=== PATIENT | male | born 1955 | race Asian ===

== ENCOUNTER 2022-04-09 07:08 | Day surgery (SDC) | payer MEDICARE, OTHER ==
[~2022-04-09] VITALS: Ht 157.5 cm; Wt 88.2 kg
[~2022-04-09 07:08] MED LIST: AMBIEN5 MG PO; BENICAR HCT 201 EACH PO; CRUTCH1 EACH; IBUPROFEN400 MG PO; LIPITOR10 MG; METFORMIN HCL500 MG PO; NORCO 10-325 T1 EACH PO; NORCO 5-325 TA1 EACH PO; NORCO 7.5-3251 EACH PO; ULTRAM50 MG PO; ZOLOFT50 MG
--- NOTE | 2022-04-09 08:50 | NUR ---
04/09/22 0850 Monik Romano 0826 PT ARRIVED IN PACU SLEEPY WITH NO C/O'S. ABD FIRM. ENCOURAGED PT TO PASS GAS. 0835 PT PASSING GAS. ABD SOFT. 0845 SITTING AT SIDE OF BED GETTING DRESSED. DC INSTRUCTIONS GIVEN. ALL QUESTIONS ANSWERED.
--- NOTE | 2022-04-10 08:02 | OR ---
[facility] [address], [place] [address] Signed DATE OF OPERATION: 04/09/2022 SURGEON: Luis Pollock MD PREOPERATIVE DIAGNOSES: 1. Personal history of colonic polyps, age 50 (2005). 2. Internal hemorrhoids. 3. Colonic lipomas. 4. Hyperplastic polyps. 5. Father with colonic polyps in his 60s. POSTOPERATIVE DIAGNOSIS: Minimal internal hemorrhoids. PROCEDURE: Colonoscopy without biopsy. ESTIMATED BLOOD LOSS: None. INDICATIONS: Slime is a 67-year-old gentleman, who returns for followup colonoscopy. He came in 2005 at the age of 50. He had a tubulovillous adenomatous polyp removed at 25 cm. He is known to have internal hemorrhoids. He always does well with Versed and fentanyl. He returned in 2009 at the age of 55. He had hyperplastic polyps removed at that time. Again, internal hemorrhoids. We also noticed some lipomas in the colon, although we did not see those today. He returned in 2014, had internal hemorrhoids, but no polyps. He returns now for followup colonoscopy. It has been a little delayed because of the COVID pandemic. We know his father had colonic polyps in his 60s. He has no lower GI complaints. In the office, I gave him a pamphlet on colonoscopy. He understands the nature of that test. There is risk including, but not limited to gas bloating, crampy abdominal pain, bleeding, perforation requiring surgery, and missed diagnosis. We also reviewed the need for IV conscious sedation. He had expressed understanding and wished to proceed. PROCEDURE IN DETAIL: Slime was taken into our endoscopy suite and placed in the left lateral decubitus position. He was given a total of 4 mg of Versed and 100 mcg of fentanyl to cover the case. A digital rectal exam was performed and this was unremarkable. He does have moderately indurated and swollen prostate gland consistent with his age. The adult Electronically Signed By: LUIS POLLOCK MD 04/10/22 0802 PATIENT NAME: SLIME CASTANEDA OPERATIVE REPORT DATE OF : 59 REPORT #: [id number] PHYSICIAN: LUIS POLLOCK MD PCP: DANDY PAGAN MD REPORT IS CONFIDENTIAL AND NOT TO BE RELEASED WITHOUT AUTHORIZATION [facility] [address], [place] [address] Signed colonoscope had been introduced and advanced under direct visualization of camera. His prep was quite excellent. We could easily see the appendiceal orifice and the ileocecal valve. The scope was then slowly withdrawn. There were no polyps on this occasion. No diverticulosis. We did not specifically see any lipomas on this occasion. Once in the rectum, the scope was retroflexed. He does have the minimal internal hemorrhoids. After this, the gas was suctioned out. The colonoscope removed. Slime tolerated the procedure quite well. RECOMMENDATIONS: Slime can return in 5 years for repeat colonoscopy given his personal and family history. Luis Pollock MD ALB/MODL /[id number] cc: MD Dandy Malik MD Copies: LUIS POLLOCK MD, MALCOLM MD ~ Electronically Signed By: LUIS POLLOCK MD 04/10/22 0802 PATIENT NAME: SLIME CASTANEDA OPERATIVE REPORT DATE OF : 59 REPORT #: [id number] PHYSICIAN: LUIS POLLOCK MD PCP: DANDY PAGAN MD REPORT IS CONFIDENTIAL AND NOT TO BE RELEASED WITHOUT AUTHORIZATION
== END 2022-04-09 08:55 | disposition home or self-care (01) ==
LOC: DS 07:08 → OPS 07:08 → DS 08:15 → OPS 08:55
PROVIDERS: ATTEND Colon & Rectal Surgery
PROC: 0DJD8ZZ Inspection of Lower Intestinal Tract, Via Natural or Artificial Opening Endoscopic (ICD-10-PCS; principal; 2022-04-09 08:15)
DX: Z12.11 Encounter for screening for malignant neoplasm of colon (principal); K64.0 First degree hemorrhoids; E11.9 Type 2 diabetes mellitus without complications; G47.33 Obstructive sleep apnea (adult) (pediatric); I10 Essential (primary) hypertension; E66.9 Obesity, unspecified; Z87.19 Personal history of other diseases of the digestive system; Z83.71 Family history of colonic polyps; Z86.718 Personal history of other venous thrombosis and embolism; Z88.5 Allergy status to narcotic agent; Z68.35 Body mass index [BMI] 35.0-35.9, adult
CPT/HCPCS: 99153; G0500; J0690; J2250; J3010; J7121

== ENCOUNTER 2023-09-08 05:50 | Day surgery (SDC) | payer OTHER, MEDICARE ==
[2023-09-03 10:41] VITALS: BP 122/81
[~2023-09-08] VITALS: Ht 157.5 cm; Wt 89.0 kg
[~2023-09-08 05:50] MED LIST changes: -BENICAR HCT 201 EACH PO; +BENICAR20 MG PO; -LIPITOR10 MG; +LIPITOR10 MG PO; -ZOLOFT50 MG; +ZOLOFT50 MG PO; +ZOLPIDEM TARTRAT5 MG PO
[2023-09-08 06:05] VITALS: BP 117/79
--- NOTE | 2023-09-08 13:32 | NUR ---
09/08/23 1332 Doris De La Cruz [phone] PT HEART RHYTHM SINUS TACH. 1238 PT ARRIVED TO PACU MOANING AND STARTING TO MOVE AROUND IN BED. 1240 PT GRABBING AT BLACKETS AND NOD "YES" WHEN ASKED ABOUT PAIN. 1255 PT REPORTS PAIN IS 10/10, RN CONTINUES TO REORIENT PT TO PACU. PT REPROTS "PEE," THE NEED TO VOID. PT EDUCATION GIVEN. O2 REMOVED. 1305 PT MOVED UP IN BED, O2 SAT DECREASED TO 88-89%, DEEP BREATHING ENCOURGAGED. PT MORE AWAKE AND RESTING IN BED. NO MOANING OR GRIMACING NOTED. 1306 2L NC PLACED, O2 INCREASED TO MID 90S. 1314 PAIN MEDICATION GIVEN, PT REPORTS PAIN IS THE NEED TO VOID. EDUCATION GIVEN ON THE NEED TO VOID, JACKSON, AND PAIN MEDICATION AND DEEP BREATHING. 1320 PT RESTING AND ASLEEP OFF AND ON. PLAN OF CARE DISCUSSED.
[2023-09-08 14:00] VITALS: BP 116/72
--- NOTE | 2023-09-08 14:24 | NUR ---
PT ARRIVES TO MED-SURG @1400 VIA BED. QUIET ALERT. REPORT RECEIVED. PT RESTING NOW EYES CLOSED, JACKSON DRAINING PALE PINK. SATS ARE 96% PT REMAINS ON 2LPM APPEARS SLEEPY AT THIS TIME WILL LET HIM REST.
--- NOTE | 2023-09-08 14:39 | NUR ---
PT IN GOOD SPIRITS. TALKED QUIETLY BUT MADE JOKES. DENIED NEEDS. DECLINED GUIDEPOST. CONSENTED TO PRAYER. PRAYED FOR HEALING AND ONGOING BLESSING.
--- NOTE | 2023-09-08 15:22 | NUR ---
PT RESTING EYES CLOSED AWAKENS TO VOICE. AGREES HE IS COMFORTABLE, H20 AND CALL LIGHT AT BEDSIDE. JACKSON DRAINING LIGHT PINK.
[2023-09-08 15:52] VITALS: BP 110/67
--- NOTE | 2023-09-08 16:35 | NUR ---
PT REPORTS NEEDING TO MOVE HIS BOWELS. ASSISTED TO BED CARRILLO AFTER MUCH CONVINCING OF NEED TO REMAIN SUPINE AND NOT STRAIN. HIS IS AT BEDSIDE.
--- NOTE | 2023-09-08 17:31 | NUR ---
PT UNABLE TO MOVE HIS BOWELS. CONTINUES RESTING IN BED PRESENT IN THE ROOM. PT DRINKING DIET PEPSI STATES HE IS NOT HUNGRY BUT MIGHT EAT A BITE OR TWO WHEN THE MEAL IS SERVED. DENIES NEEDS AT THIS TIME
[2023-09-08] MEDS ORDERED: FINASTERIDE5 MG PO (17:35)
--- NOTE | 2023-09-08 17:55 | NUR ---
PT AGREES HE HAS SOME DISCOMFORT TAKES NORCO WITH EVENING MEAL. CBI STILL RUNNING GENTLY LIGHT PINK. REMAINS IN THE ROOM.
--- NOTE | 2023-09-08 18:18 | NUR ---
MED REC COMPLETE
--- NOTE | 2023-09-08 19:46 | NUR ---
REPORT RECEIVED FROM DAY SHIFT RN. PT LYING IN BED ALERT AND ORIENTED. CBI INFUSING AT A SLOW DRIP. URINE IN TUBING LIGHT PINK. NO CLOTS NOTED. PT DENIES NEEDS AT THIS TIME. WHITE BOARD UPDATED. CALL LIGHT IN REACH. AT BEDSIDE.
[2023-09-08 21:11] VITALS: BP 112/63
--- NOTE | 2023-09-08 21:44 | NUR ---
EVENING ASSESSMENT COMPLETE. SCHEDULED MEDS ADMIN PER EMAR. PT DENIES PAIN AT REST. DENIES NAUSEA. CBI CLAMPED AT THIS TIME. URINE IN TUBING LIGHT PINK. NO CLOTS NOTED. JACKSON CARE COMPLETE. SCANT AMOUNT OLD BLOODY DRAINAGE NOTED. 2PA TO REPOSITION IN BED. CPOX AND SCD'S IN PLACED. PT DENIES QUESTIONS OR CONCERNS. CALL LIGHT IN REACH.
--- NOTE | 2023-09-09 00:28 | NUR ---
PT RESTING IN BED WITH EYES CLOSE. HOME CPAP IN PLACE. SpO2 94%. HR LOW 100'S. RESPIRATIOS EVEN. URINE REMAINS LIGHT PINK. CBI REMAINS CLAMPED.
[2023-09-09 02:09] VITALS: BP 109/67
--- NOTE | 2023-09-09 02:57 | NUR ---
PT RESTING WITH EYES CLOSED. AWAKENS EASILY. VS AND I&O OBTAINED. PT REPORTS JACKSON PAIN 07/03. PRN FOR PAIN ADMIN PER EMAR. URINE REMAINS LIGHT PINK. NO CLOTS NOTED. CBI REMAINS CLAMPED. RESTING ON COUCH. NO FURTHER NEEDS AT THIS TIME.
--- NOTE | 2023-09-09 04:19 | NUR ---
RN WENT INTO PT ROOM TO CHECK ON C.POX ALARM. PT STATED THAT THEY ARE GOING TO TAKE THEIR OWN MELETONIN THAT THEY HAVE BROUGHT WITH THEM. RN EDUCATED PT AND PT'S ON NOT TAKING MEDICATION BROUGHT FROM HOME. PT STATED THAT THEY ARE GOING TO DO IT ANYWAY IF THEY FEEL THEY NEED IT. CHARGE NURSE AND PRIMARY RN INFORMED. WILL CONTINUE TO MONITOR.
[2023-09-09 05:52] VITALS: BP 117/70
--- NOTE | 2023-09-09 05:59 | NUR ---
PT RESTING WITH EYES CLOSED. AWAKENS EASILY. VS AND I&O OBTAINED. PT REPORTS PAIN IS TOLERABLE AT THIS TIME. JACKSON DRAINING LIGHT RED URINE. NO CLOTS NOTED. PT DENIES FURTHER NEEDS. CALL LIGHT IN REACH.
--- NOTE | 2023-09-09 07:05 | NUR ---
REPORT RECEIVED FROM ALVARO ALEXIS. PT RESTING IN BED WITH EYES CLOSED, RESPIRATIONS EVEN AND UNLABORED. HEAD OF BED AT 10 DEGREES. JACKSON CATHETER SHOWS PINK URINE, TO GRAVITY. PT ALLOWED TO REST. BED RAILS UP. CALL LIGHT WITHIN REACH.
--- NOTE | 2023-09-09 08:16 | NUR ---
MORNING ASSESSMENT AND MEDICATION DUE. PT RESTING IN BED, VISITING WITH . PT ALERT AND OREITNED TO ALL. PT REPORTS 5/10 PAIN IN PENIS AND REPORTS HE FEELS A CONSTANT NEED TO VOID. SEE MAR FOR MEDICATION GIVEN. ABDOMDEN REMAINS SOFT AND NON TENDER. FLANKS ARE NON TENDER. HEART TONES REGULAR. LUNG SOUNDS CLEAR. JACKSON CATHETER DRAINING PINK URINE, OCCATIONAL VERY SMALL CLOT SEEN. EXTENSIVE EDUCATION DONE WITH PT REGARDING JACKSON CATHETER CARE AND MONITORING OUTPUT. PT AND FAMILY DEMONSTRATE UNDERSTANDING, CATHETER CARE DONE AT THIS TIME. SCAND RED DRAINAGE SEEN FROM MEATUS. PT EATING BREAKFAST. MEDICATIONS GIVEN. NO ADDITIONAL REQUESTS OR COMPLAINTS. CALL LIGHT WITHIN REACH. BED RAILS UP.
[2023-09-09] MEDS ORDERED: CIPRO500 MG PO (09:18)
[2023-09-09] MEDS ORDERED: HYDROCODONE BIT10 MG PO (09:24)
[2023-09-09 09:33] VITALS: BP 99/56
--- NOTE | 2023-09-09 09:54 | NUR ---
DR MENCHACA CALLED AND UPDATED REGARDING PTS STATUS. STATES OK TO PROCEED WITH DISCHARGE AT THIS TIME.
--- NOTE | 2023-09-09 10:10 | NUR ---
PT READY FOR DISCHARGE. VITAL SIGNS STABLE. IV DC'D PER PROTOCOL, GAUZE AND COBAN APPLIED. PT DRESSES SELF, EDUCATION REGARDING CATHETER REINFORCED. PT VEBALIZES UNDERSTANDING OF CATHETER CLEANING, EMPTING AND HOME CARE. DISCHRAGE INSTRUCTIONS REVIEWED WITH PT AND , PT AND VERBALZIES UNDERSTANDING OF INSTRCUTIONS, MEDICATIONS, FOLLOW UP, CATHETER CARE, AND STAYING HYDRATED WITH MINIMAL ACTIVITY AT HOME. PT TRANSFERSE SELF TO WHEELCHAIR. PT WHEELED FROM MED/SURG. NO ADDITIONAL REQUESTS OR CONCERNS.
--- NOTE | 2023-09-09 14:26 | OR ---
[facility] [address] [place], [place] [address] Signed DATE OF OPERATION: 09/08/2023 SURGEON: Naheed Menchaca MD PREOPERATIVE DIAGNOSES: 1. BPH with lower urinary tract symptoms. 2. Multiple large bladder calculi x4, with a total stone burden of 5 cm. POSTOPERATIVE DIAGNOSES: 1. BPH with lower urinary tract symptoms. 2. Multiple large bladder calculi x4, with a total stone burden of 5 cm. NAMES OF PROCEDURES: 1. Diagnostic cystoscopy. 2. Urethral dilation using Walter sounds from 14-Maltese to 28-Maltese. 3. Cystolitholapaxy, complicated with extraction of bladder calculi. 4. Transurethral resection of the prostate. ANESTHESIA: General. ESTIMATED BLOOD LOSS: 200 mL. COMPLICATIONS: None. SPECIMENS: 1. Bladder calculi fragments sent to the lab. 2. Prostate chips sent to pathology for evaluation. DRAINS: A 22-Maltese three-way Tamayo catheter, connected to continuous bladder irrigation. INDICATIONS FOR PROCEDURE: Slime is a very pleasant 68-year-old gentleman with a history of elevated PSA in the 10 range. Last year, he underwent a negative transrectal ultrasound-guided biopsy of the prostate. For the most part, he denied any significant urinary symptoms until recently when he experienced a painless bout of gross hematuria. This prompted a cystoscopy, which revealed rather severe trilobar benign prostatic hyperplasia with the presence of Electronically Signed By: NAHEED MENCHACA MD 09/09/23 1426 PATIENT NAME: SLIME CASTANEDA OPERATIVE REPORT DATE OF : 59 REPORT #: [id number] PHYSICIAN: NAHEED MENCHACA MD PCP: BEBETO PAGAN MD REPORT IS CONFIDENTIAL AND NOT TO BE RELEASED WITHOUT AUTHORIZATION [facility] [address], [place] [address] Signed four large bladder calculi. The total stone burden was approximately 5 to 5.5 cm in size. I explained to the patient that his calculi are the likely source of his hematuria and that these will need to be extracted under anesthesia. The bladder calculi are present secondary to his enlarged prostate, which is producing continuous incomplete bladder emptying, which has promoted growth of his bladder calculi. After discussing the risks and benefits of the procedure, the patient agreed to proceed. OPERATIVE FINDINGS: 1. On cystoscopy, there was no evidence of any suspicious masses or lesions. There are still four large smooth-walled bladder calculi in his bladder measuring anywhere from 2 cm down to 1 cm in size. Bilateral ureteral orifices are in their normal anatomic location effluxing clear urine. 2. The patient's urethra was noted to be diminutive so he was dilated using Midlothian sounds from 14-Maltese to 28-Maltese. Using a holmium laser at 1.5 joules and 20 barrow, the patient's bladder calculi were fragmented using a 550 micron fiber. The stone fragmentation process was quite complicated as the patient did bleed during this portion of the procedure making visualization difficult. Total stone fragmentation time was approximately 2 hours. At the end the procedure, 100% of stone fragments had been removed from the patient's bladder. 3. The patient's prostate was transurethrally resected using a 24-Maltese bipolar loop in the standard fashion. His median lobe was resected 1st followed by his left and then right lateral lobe of the prostate. All the resection was performed down to the level of verumontanum circumferentially. 4. At the end at the procedure, a 22-Maltese three-way Tamayo catheter was inserted into the patient's bladder and connected to continuous bladder irrigation. DESCRIPTION OF PROCEDURE: After informed consent was obtained, the patient was taken back to the operating room. He was transferred from the [facility] to the operating room table, where general anesthesia was induced. He was placed in dorsal lithotomy position and his genitalia were prepped and draped in a standard sterile fashion. The patient's urethra was dilated using Midloth[place] sounds from 14-Maltese to 28-Maltese without difficulty. Using a 30-degree lens on a 22.5-Maltese introducer, rigid cystoscope was inserted through his urethra and into his bladder under direct visualization. Panendoscopic views of the bladder were then obtained. Please see above findings. I immediately switched the sheath from a 22.5-Maltese sheath to a 25-Maltese sheath prior to initiating stone fragmentation. I advanced the 550 micron laser fiber through the scope and into the patient's bladder with the help of an 8-Maltese open-ended ureteral catheter. This open-end ureteral catheter was used to stabilize the laser fiber. I then fragmented the patient's multiple bladder calculi using the aforementioned settings. This took approximately 2 hours and was quite complicated due to lack of visualization. At the end of 2 hours, I was able to successfully extract all the bladder fragments from the patient's bladder. Electronically Signed By: NAHEED MENCHACA MD 09/09/23 1426 PATIENT NAME: SLIME CASTANEDA OPERATIVE REPORT DATE OF : 59 REPORT #: [id number] PHYSICIAN: NAHEED MENCHACA MD PCP: BEBETO PAGAN MD REPORT IS CONFIDENTIAL AND NOT TO BE RELEASED WITHOUT AUTHORIZATION [address] [place] [address] Signed I removed the laser fiber and the 25-Maltese sheath and exchanged this for a 26-Maltese sheath. Prior to insertion of the sheath, I did instill 60 mL of sterile jelly into the patient's urethra. This was followed by placement of the 26-Maltese sheath using a visual obturator. The visual obturator was then switched out for the resectoscope containing a 24-Maltese loop. I then resected the patient's prostate transurethrally down to the level of the verumontanum. The middle lobe was resected 1st followed by the left and then right lobe of the prostate. I did not resect distally to the verumontanum. The patient bled a good deal during this portion of the procedure, so did take long to maintain hemostasis and to maintain my visualization during the resection. Throughout the procedure, I did irrigate the patient's bladder completely and extracting all the prostate chips from the bladder and placing them in a specimen cup. At the end the procedure, the patient had a wide-open prostatic urethra and hemostasis was under adequate control. After extracting all the prostate chips from the patient's bladder, I removed the resectoscope and the 26-Maltese sheath leaving a 0.035 Sensor wire behind. Over the wire, I passed a 22-Maltese three-way Tamayo catheter into the patient's bladder and connected the catheter to CBI. Prior to connecting it to CBI, I did manually irrigate the bladder which did confirm proper placement and I was also able to confirm there were no residual prostate chips. I did apply triamcinolone cream onto the Tamayo catheter prior to placement to prevent any inflammation that can occur with the catheter in place postoperatively. Again, the catheter was connected to continuous bladder irrigation and the procedure was terminated. The patient tolerated the procedure well without any complication. He will now be transferred to the postanesthesia care unit in stable condition. DISPOSITION: I discussed the details of today's procedure with the patient's and answered all of her questions. He will remain here in the hospital overnight and his CBI will be slowly weaned off as tolerated. He will be given appropriate pain control and his diabetic diet will be initiated. Tomorrow he will receive one more dose of IV Rocephin prior to his discharge home with his Tamayo catheter gravity drainage. He will need to be scheduled to see me this for a voiding trial. He will also need to see me in 4 to 6 weeks for his 1st postoperative evaluation with a PVR. Naheed Menchaca MD AR/MODL /[id number] Electronically Signed By: NAHEED MENCHACA MD 09/09/23 1426 PATIENT NAME: SLIME CASTANEDA OPERATIVE REPORT DATE OF : 59 REPORT #: [id number] PHYSICIAN: NAHEED MENCHACA MD PCP: BEBETO PAGAN MD REPORT IS CONFIDENTIAL AND NOT TO BE RELEASED WITHOUT AUTHORIZATION [address] [address] Signed Copies: ~ Electronically Signed By: NAHEED MENCHACA MD 09/09/23 1426 PAT[facility] O[facility] REPORT DATE OF : 59 REPORT #: [id number] PHYSICIAN: NAHEED MENCHACA MD PCP: BEBETO PAGAN MD REPORT IS CONFIDENTIAL AND NOT TO BE RELEASED WITHOUT AUTHORIZATION
[2023-09-11 13:40] LABS: CALCULI MASS 1327 mg (())
--- NOTE | 2023-09-15 15:12 | PATH ---
[facility] [address] [place], [place] [address] Signed SPECIMEN(S): A PROSTATE CHIPS (TUR) SPECIMEN SOURCE: A. PROSTATE CHIPS (TUR) CLINICAL HISTORY: Prostate chips (TUR). BPH, bladder stone. FINAL PATHOLOGIC DIAGNOSIS: Prostate chips, TUR: - Benign prostatic glandular tissue with stromal and glandular inflammation. - Focal prostatic glandular atrophy. - Acute and chronic stromal and glandular inflammation. - Benign urothelium. JR:clv:[facility] MICROSCOPIC EXAMINATION: Histologic sections of all submitted blocks are examined by light microscopy. These findings, together with the gross examination, support the pathologic diagnosis. Immunohistochemical staining, with appropriately reactive controls, for p63, high molecular weight cytokeratin, and AMACR (TriCAP--prostate cocktail multiplex stain) was performed on block (A7). There is at least partial basal marker (p63, HMWK) expression and only uucypxfv-gl-uzma AMACR expression in the focus/foci of interest. This constellation of findings is indicative of a benign process, such as partial atrophy, and argues against the possibility of prostatic adenocarcinoma. JVR:[facility] GROSS DESCRIPTION: The specimen, labeled and designated "Kimmy Castaneda, prostate chips," is received in formalin is a 31 g, 8.5 x 8.0 x 1.7 cm aggregate of pink-douglas to gamble rubbery soft tissue. Approximately 50% of the specimen is submitted in (A1-A12). FB (under the direct supervision of a pathologist) The Gross Description was prepared using a voice recognition system. The report was reviewed for accuracy; however, sound-alike word errors, addition and/or deletions may occur. If there is any question about this report, please contact Client Services. PATIENT NAME: SLIME CASTANEDA PATHOLOGY DATE OF : 59 REPORT #: [id number] PHYSICIAN: AMELIE HWANG PCP: BEBETO PAGAN MD REPORT IS CONFIDENTIAL AND NOT TO BE RELEASED WITHOUT AUTHORIZATION [facility] [address] [place], [place] [address] Signed ADDITIONAL NOTES: Immunohistochemical and/or in situ hybridization studies were performed on this case with the appropriate positive controls that react as expected. This test was developed and its performance characteristics determined by [facility]. It has not been cleared or approved by the U.S. Food and Drug Administration. The FDA has determined that such clearance or approval is not necessary. This test is used for clinical purposes. It should not be regarded as investigational or for research. [facility] is certified under the Clinical Laboratory Improvement Amendments of 1988 (CLIA) as qualified to perform high complexity clinical laboratory testing. PERFORMING LABORATORY: Technical component was performed by [facility], [address] [place] [id number] (CLIA# [id number]). Professional interpretation was performed by [facility], [address] [place] [id number] (CLIA#: [id number]). Diagnostician: Eddie Wong MD Pathologist Electronically Signed 09/15/2023 Copies: ~ PATIENT NAME: SLIME CASTANEAD PATHOLOGY DATE OF : 59 REPORT #: [id number] PHYSICIAN: AMELIE PATHOLOGY PCP: BEBETO PAGAN MD REPORT IS CONFIDENTIAL AND NOT TO BE RELEASED WITHOUT AUTHORIZATION
== END 2023-09-09 10:20 | disposition home or self-care (01) ==
LOC: DS 05:50 → MS 14:01 → DS 09-09 10:20
PROVIDERS: ATTEND Urology
PROC: 0TCB8ZZ Extirpation of Matter from Bladder, Via Natural or Artificial Opening Endoscopic (ICD-10-PCS; principal; 2023-09-08 07:30)
DX: N40.1 Benign prostatic hyperplasia with lower urinary tract symptoms (principal); N21.0 Calculus in bladder
CPT/HCPCS: 00910; 82365; C1769; J0131; J0690; J0696; J1815; J2001; J2405; J2704; J3010; J3475; J3490; J7121

== ENCOUNTER 2023-10-22 05:12 | Emergency (ER) | payer OTHER, MEDICARE ==
[~2023-10-22] VITALS: Ht 157.5 cm; Wt 85.0 kg
[~2023-10-22 05:12] MED LIST changes: +CIPRO500 MG PO; +FINASTERIDE5 MG PO; +HYDROCODONE BIT10 MG PO
--- OUTSIDE RECORDS SUMMARY | 2023-10-22 05:15 | XMS ---
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 Katty has no Care Guidelines for this patient. [place] VISIT COUNT (12 MO.) 1 JODEE Seaman TOTAL 1 NOTE: Visits indicate total known visits. ED/UCC VISIT TRACKING (12 MO.) 10/22/2023 05:13 JODEE Mortensen [place] TYPE: Emergency COMPLAINT: - URINE PROBLEM INPATIENT VISIT TRACKING (12 MO.) No inpatient visits to display in this time frame [email or web address]
[2023-10-22 07:20] VITALS: BP 125/90
[2023-10-23] MEDS ORDERED: HYDROCODON-ACE1 EA10 PO (04:24)
== END 2023-10-22 07:24 | disposition home or self-care (01) ==
LOC: ED 05:12
DX: R33.9 Retention of urine, unspecified (principal); I10 Essential (primary) hypertension; E11.9 Type 2 diabetes mellitus without complications; Z79.84 Long term (current) use of oral hypoglycemic drugs; Z79.899 Other long term (current) drug therapy; Z87.442 Personal history of urinary calculi
CPT/HCPCS: 81001; J1170

== ENCOUNTER 2023-10-23 03:51 | Emergency (ER) | payer OTHER, MEDICARE ==
[~2023-10-23] VITALS: Ht 157.5 cm; Wt 85.0 kg
--- OUTSIDE RECORDS SUMMARY | 2023-10-23 03:54 | XMS ---
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 Katty has no Care Guidelines for this patient. [place] V[facility] COUNT (12 MO.) 2 [facility] 2 NOTE: Visits indicate total known visits. ED/C VISIT TRACKING (12 MO.) [facility]23 03[facility] [place] [facility] COMPLAINT: - URINE PROBLEM 10/22/2023 05:13 JODEE Mortensen [place] TYPE: Emergency COMPLAINT: - URINE PROBLEM INPATIENT VISIT TRACKING (12 MO.) No inpatient visits to display in this time frame [email or web address]
[2023-10-23] MEDS ORDERED: HYDROCODON-ACE1 EA10 PO (04:24)
[2023-10-23 04:38] VITALS: BP 120/74
== END 2023-10-23 04:39 | disposition home or self-care (01) ==
LOC: ED 03:51
DX: T83.098A Other mechanical complication of other urinary catheter, initial encounter (principal); I10 Essential (primary) hypertension; E11.9 Type 2 diabetes mellitus without complications; Z79.899 Other long term (current) drug therapy; Z79.84 Long term (current) use of oral hypoglycemic drugs
CPT/HCPCS: 51798; 99283; A9270